=== PATIENT | female | born 1950 | race Two or more races ===

== ENCOUNTER 2021-05-07 16:03 | Inpatient (IN) | payer OTHER ==
[~2021-05-07] VITALS: Ht 165.1 cm; Wt 59.0 kg
[~2021-05-07 16:03] MED LIST: AVAPRO150 MG PO; FERROUS FUMARAT1 TAB PO; HUMULIN 70100 UNIT/2; IMDUR30 MG PO; ISORBIDE PO; METFORMIN PO; PERCOCET 5/3251 TAB PO; RELION HUM100 UNIT/1 SQ; TOPROL XL25 M1 PO; TOPROL XL50 M1 PO; TRENTAL PO; WELLBUTRIN SR100 MG PO; [UNRECOGNIZED DRUG - OTHER] PO
--- NOTE | 2021-05-07 16:17 | NUR ---
SE RECIBE PTE EN AMBULANCIA PARAMEDICOS REFIEREN TRAER A PTE POR [place] RECTAL. PTE NO SE ENCUENTRA EN CONDICIONES PARA BRINDAR INFORMACION DE ALERGIAS, MEDICAMENTOS Y CONDICIONES MEDICAS. SE MIDEN S/V A PTE Y SE COLOCA EN [place]MAN.
--- NOTE | 2021-05-07 16:34 | NUR ---
NOTA FAMILIAR REFIERE PTE TIENE ULCERA SAGRAL ETAPA 2 FOLY FISTULA Y MOGLOBINA BAJA NO COME DESDE EL GORDY.
--- NOTE | 2021-05-07 20:17 | NUR ---
SE HABLA CON MS BAUZO SOBRE DOS UNIDADES DE PRBC COMPLETAS PARA PTE. SE REQUISAN LAS MISMAS.
[2021-05-22] MEDS ORDERED: TAMSULOSIN HCL0.4 MG (14:49)
[2021-05-22] MEDS ORDERED: SYNTHROID150 MCG (14:49)
[2021-05-22] MEDS ORDERED: LEVOFLOXACIN750 MG (14:49)
[2021-05-22] MEDS ORDERED: CALCITRIOL0.5 MCG (14:50)
[2021-05-22] MEDS ORDERED: JANUVIA100 MG (14:50)
[2021-05-22] MEDS ORDERED: RESTORIL30 MG (14:50)
[2021-05-22] MEDS ORDERED: ALENDRONATE SOD70 MG (14:50)
[2021-05-22] MEDS ORDERED: OMEPRAZOLE20 MG (14:51)
[2021-05-22] MEDS ORDERED: PENTOXIFYLLINE400 MG (14:51)
[2021-05-22] MEDS ORDERED: GABAPENTIN100 M2 (14:52)
[2021-05-22] MEDS ORDERED: ISOSORBIDE DINI30 MG (14:53)
[2021-05-22] MEDS ORDERED: FAMOTIDINE40 MG (14:53)
[2021-05-22] MEDS ORDERED: LOSARTAN POTASS25 MG (14:53)
[2021-05-22] MEDS ORDERED: ZADITOR5 ML (14:54)
[2021-05-22] MEDS ORDERED: OPTIVE EYE DROP15 ML (14:54)
[2021-05-22] MEDS ORDERED: SIMVASTATIN10 MG (14:54)
[2021-05-22] MEDS ORDERED: FOLIC ACID1 MG (14:55)
[2021-05-22] MEDS ORDERED: ATORVASTATIN CA10 MG (14:55)
[2021-05-22] MEDS ORDERED: FERROUS SULFAT325 MG (14:55)
[2021-05-30] MEDS ORDERED: FLUCONAZOLE100 MG PO (11:33)
== END 2021-05-30 13:52 | disposition home or self-care (01) | DRG 982 ==
LOC: ER 16:03 → SEC-K 19:37 → MEDI 19:37
PROVIDERS: ADMIT Surgery; ATTEND Surgery
PROC: 30243N1 Transfusion of Nonautologous Red Blood Cells into Central Vein, Percutaneous Approach (ICD-10-PCS; 2021-05-07)
PROC: B24BYZZ Ultrasonography of Heart with Aorta using Other Contrast (ICD-10-PCS; 2021-05-07)
PROC: 02HV33Z Insertion of Infusion Device into Superior Vena Cava, Percutaneous Approach (ICD-10-PCS; 2021-05-08)
PROC: 3E0436Z Introduction of Nutritional Substance into Central Vein, Percutaneous Approach (ICD-10-PCS; 2021-05-09)
PROC: 0DBL8ZX Excision of Transverse Colon, Via Natural or Artificial Opening Endoscopic, Diagnostic (ICD-10-PCS; 2021-05-21)
PROC: 0D1M4Z4 Bypass Descending Colon to Cutaneous, Percutaneous Endoscopic Approach (ICD-10-PCS; principal; 2021-05-25)
DX: N32.1 Vesicointestinal fistula (principal); N39.0 Urinary tract infection, site not specified; D62 Acute posthemorrhagic anemia; K62.5 Hemorrhage of anus and rectum; N73.6 Female pelvic peritoneal adhesions (postinfective); D64.9 Anemia, unspecified; N73.8 Other specified female pelvic inflammatory diseases; K57.30 Diverticulosis of large intestine without perforation or abscess without bleeding; E11.65 Type 2 diabetes mellitus with hyperglycemia; I10 Essential (primary) hypertension; E03.9 Hypothyroidism, unspecified; E20.9 Hypoparathyroidism, unspecified; Z74.01 Bed confinement status; G30.9 Alzheimer's disease, unspecified; F02.80 Dementia in other diseases classified elsewhere, unspecified severity, without behavioral disturbance, psychotic disturbance, mood disturbance, and anxiety